=== PATIENT | female | born 1990 | race Caucasian/White ===

== ENCOUNTER 2016-11-30 11:38 | Emergency (ER) | payer MEDICAID, OTHER ==
[2016-11-30 11:38] VITALS: BMI 20.3
[2016-11-30 11:44] VITALS: TEMP 97.9
--- NOTE | 2016-11-30 12:08 | C.PDOC ---
History Of Present Illness 26 y/o female presents to the ED with complains of right breast pain since yesterday. Pt reports that she has a hard area of the right breast. She denies trauma, fever, recent /, nipple discharge. There is a FMHx of breast cancer; mother and aunt's in their 40's. Time Seen by Provider: 11/30/16 11:46 Chief Complaint (Nursing): Breast Problem History Per: Patient History/Exam Limitations: no limitations Onset/Duration Of Symptoms: Hrs Current Symptoms Are (Timing): Still Present Severity: Mild Past Medical History Reviewed: Historical Data, Nursing Documentation, Vital Signs Vital Signs: Last Vital Signs Temp 97.9 F 11/30/16 11:42 Pulse 72 11/30/16 12:24 Resp 18 11/30/16 12:24 BP 100/60 11/30/16 12:24 Pulse Ox 95 11/30/16 13:09 - Medical History PMH: Asthma Family History: States: No Known Family Hx - Social History Hx Tobacco Use: No Hx Alcohol Use: No Hx Substance Use: No - Immunization History Hx Tetanus Toxoid Vaccination: No Hx Influenza Vaccination: Yes (2016) Hx Pneumococcal Vaccination: No Review Of Systems Except As Marked, All Systems Reviewed And Found Negative. Constitutional: Negative for: Fever, Chills Cardiovascular: Negative for: Chest Pain, Palpitations Respiratory: Negative for: Cough, Shortness of Breath Musculoskeletal: Positive for: Other (right breast pain; hard area in right breast. No nipple discharge) Skin: Positive for: Other (breast pain (right)) Physical Exam - Physical Exam Appears: Well, Non-toxic, No Acute Distress Skin: Warm, Dry, No Rash Head: Normacephalic Oral Mucosa: Moist Chest: Symmetrical, Other (left breast normal; right breast at 9 o'clock hard palpable 3 cm area; no erythema, fluctuance, induration, or discharge from nipple) Cardiovascular: Rhythm Regular Respiratory: Normal Breath Sounds, No Rales, No Rhonchi, No Wheezing Extremity: Bilateral: Atraumatic Neurological/Psych: Oriented x3 ED Course And Treatment O2 Sat by Pulse Oximetry: 95 (on room air) Pulse Ox Interpretation: Normal Progress Note: Patient given PO Naprosyn, and was instructed to follow up with rotary pump operator within 1 week. Patient understands the need for follow up in timely fashion and the need for her to have mammogram. Patient instructed to return to ED if symptoms worsen. Disposition Counseled Patient/Family Regarding: Diagnosis, Need For Followup, Rx Given - Disposition Referrals: [facility] [Outside] Disposition: HOME/ ROUTINE Disposition Time: 12:20 Condition: STABLE Additional Instructions: GO DOWNSTAIRS AND MAKE APPOINTMENT AT [facility] - YOUR NEED MAMMOGRAM OR FURTHER IMAGING USE MEDICATION FOR PAIN RETURN TO ER IF SYMPTOMS WORSEN Prescriptions: Naproxen [Naprosyn Tab] 375 mg PO BID PRN #20 tab PRN Reason: pain Instructions: Breast Mass (ED) Forms: General Discharge Instructions Print Language: SAUDI ARABIAN - POA Present On Arrival: None - Clinical Impression Clinical Impression: Breast pain, right - Scribe Statement The provider has reviewed the documentation as recorded by the Ana Luisa Lal Provider Attestation: All medical record entries made by the Ana Luisa were at my direction and personally dictated by me. I have reviewed the chart and agree that the record accurately reflects my personal performance of the history, physical exam, medical decision making, and the department course for this patient. I have also personally directed, reviewed, and agree with the discharge instructions and disposition.
[2016-11-30] MEDS ORDERED: Naproxen 550 mg Tab PO STA (12:09)
[2016-11-30] MEDS ORDERED: Naproxen 550 mg Tab PO ONE (12:14)
[2016-11-30 12:25] VITALS: BP 100/60; PULSE 72; RESP 18
[2016-11-30 13:06] VITALS: O2SAT 95
== END 2016-11-30 12:25 | disposition home or self-care (01) ==
LOC: C.ER 11:38
DX: N64.4 Mastodynia (principal)